=== PATIENT | female | born 1955 | race Caucasian/White ===

== ENCOUNTER 2017-04-17 14:32 | Emergency (ER) | payer BC, OTHER ==
[~2017-04-17] VITALS: Ht 165.1 cm; Wt 60.8 kg
[2017-04-17 15:01] LABS: URINE BILIRUBIN NEGATIVE (Negative); URINE BLOOD NEGATIVE (Negative); URINE COLOR YELLOW; URINE GLUCOSE-RANDOM* NEGATIVE (Negative); URINE KETONES NEGATIVE (Negative); URINE NITRITE NEGATIVE (Negative); URINE PROTEIN (DIPSTICK) NEGATIVE (Negative); URINE UROBILINOGEN 0.2 E.U./dl (0.2-1.0)
[2017-04-17 15:23] LABS: ABSOLUTE NEUTROPHILS 2.9 thou/uL (1.4-8.2); BASOPHILS 0.8 % (0.0-2.0); EOSINOPHILS 1.2 % (0.0-3.0); HEMATOCRIT 40.2 % (37.0-47.0); HEMOGLOBIN 13.7 gm/dL (12.0-15.0); LYMPHOCYTES 34.4 % (24.0-44.0); MCH 31.2 pg (26.0-34.0); MCV 91.6 fL (80.0-100.0); MONOCYTES 8.4 % (1.0-8.0); PLATELET COUNT 250 thou/uL (150-400); POLYS 55.2 % (36.0-66.0); RBC 4.39 mil/uL (4.20-5.00); RDW 12.8 % (10.5-14.5); WBC 5.3 thou/uL (4.0-11.0)
[2017-04-17 15:24] LABS: MANUAL DIFF NO
[2017-04-17 15:34] LABS: CALCIUM 9.7 mg/dL (8.5-10.1); CREATININE 0.7 mg/dL (0.6-1.0); POTASSIUM 3.9 mmol/L (3.5-5.1)
[2017-04-17 15:40] LABS: ALBUMIN 3.8 g/dL (3.4-5.0); DIRECT BILIRUBIN 0.2 mg/dL (<0.1-0.3); TOTAL BILIRUBIN 0.7 mg/dL (<0.1-1.0); TOTAL PROTEIN 7.1 g/dL (6.4-8.2)
[2017-04-17] MEDS ORDERED: ULTRAM 50MG TAB50 MG PO (18:28)
[2017-04-17] MEDS ORDERED: IBUPROFEN 600600 M1 PO (18:28)
[2017-04-17 18:50] VITALS: BP 119/63
== END 2017-04-17 18:52 | disposition home or self-care (01) ==
LOC: ER 14:32
PROVIDERS: Nurse Practitioner
DX: D25.9 Leiomyoma of uterus, unspecified (principal); E03.9 Hypothyroidism, unspecified; Z90.89 Acquired absence of other organs; Z88.5 Allergy status to narcotic agent; F10.99 Alcohol use, unspecified with unspecified alcohol-induced disorder

== ENCOUNTER 2020-04-14 13:53 | Emergency (ER) | payer BC, OTHER ==
[~2020-04-14] VITALS: Ht 165.1 cm; Wt 59.0 kg
[~2020-04-14 13:53] MED LIST: IBUPROFEN 600600 M1 PO; ULTRAM 50MG TAB50 MG PO
[2020-04-14 18:04] LABS: ABSOLUTE NEUTROPHILS 7.4 thou/uL (1.4-8.2); BASOPHILS 0.2 % (0.0-2.0); HEMATOCRIT 40.5 % (37.0-47.0); HEMOGLOBIN 13.4 gm/dL (12.0-15.0); LYMPHOCYTES 6.6 % (24.0-44.0); MCH 31.3 pg (26.0-34.0); MCHC 33.2 g/dL (28.0-37.0); MCV 94.4 fL (80.0-100.0); MONOCYTES 2.3 % (1.0-8.0); PLATELET COUNT 257 thou/uL (150-400); POLYS 90.9 % (36.0-66.0); RBC 4.29 mil/uL (4.20-5.00); RDW 13.1 % (10.5-14.5); WBC 8.1 thou/uL (4.0-11.0)
[2020-04-14 18:12] LABS: CALCIUM 9.2 mg/dL (8.5-10.1); CREATININE 0.6 mg/dL (0.6-1.0); POTASSIUM 4.1 mmol/L (3.5-5.1)
[2020-04-14] MEDS ORDERED: MECLIZINE HCL25 M1 PO (19:04)
[2020-04-14 19:21] VITALS: BP 135/79
== END 2020-04-14 19:21 | disposition home or self-care (01) ==
LOC: ER 13:53
PROVIDERS: Nurse Practitioner
DX: R42 Dizziness and giddiness (principal); R11.2 Nausea with vomiting, unspecified; E03.9 Hypothyroidism, unspecified; Z79.899 Other long term (current) drug therapy; Z88.5 Allergy status to narcotic agent; Z90.89 Acquired absence of other organs